=== PATIENT | female | born 1945 | race Caucasian/White ===

== ENCOUNTER 2021-02-25 14:40 | Inpatient (IN) ==
[2021-02-25] MEDS ORDERED: methylPREDNISolone SOD SUC 125 MG/2 ML VIAL IV STA (16:00)
[2021-02-25] MEDS ORDERED: ALBUTEROL/IPRATROPIUM 3 ML NEB RESP TX STA (16:00)
[2021-02-25 16:28] LABS: Basophils % 0.2 % (0.0-0.8); Hematocrit 43.6 VOL% (35.7-47.0); Hemoglobin 13.8 GM/DL (12.0-16.0); Immature Granulocytes % 0.3 %; Immature Granulocytes Absolute 0.03 #; Lymphocytes # 2.4 10*3/uL (1.4-4.0); Lymphocytes % 26.8 % (21.3-54.2); Mean Corpuscular HGB Conc 31.7 GM/DL (32-36); Mean Corpuscular Volume 93.4 FL (87-102); Mean Platelet Volume 11.8 FL (9.6-12.0); Neutrophils % 65.7 % (38.7-73.9); Platelet Count 199 T/CUMM (130-400); Red Blood Count 4.67 MC/CUMM (3.8-5.5); Red Cell Distribution Width 13.9 % (9.3-17.3); White Blood Count 9.1 T/CUMM (4-12)
[2021-02-25 16:54] LABS: Albumin 3.8 G/DL (3.4-5.0); Bilirubin,Total 0.4 MG/DL (0.20-1.00); Calcium 9.5 MG/DL (8.5-10.1); Osmolality,Calculated 284.1 MOS/KG (273-304); Potassium 4.5 MMOL/L (3.5-5.1); Total Protein 8.6 G/DL (6.4-8.2)
[2021-02-25] MEDS ORDERED: LEVOFLOXACIN INJ 500 MG/100 ML PREMIX IV STA (17:20)
[2021-02-25] MEDS ORDERED: ACETAMINOPHEN 325 MG TABLET PO PRN (18:36)
[2021-02-25] MEDS ORDERED: ONDANSETRON 4 MG/2 ML VIAL IV PRN (18:36)
[2021-02-25] MEDS: ALBUTEROL/IPRATROPIUM 3 ML NEB RESP TX SCH ×2 (19:20→23:50)
[2021-02-25] MEDS ORDERED: cloNIDine 0.1 MG TABLET PO PRN (20:18)
[2021-02-25] MEDS: SERTRALINE 25 MG TABLET PO SCH (22:28)
[2021-02-25] MEDS: METOPROLOL TARTRATE 25 MG TABLET PO SCH (22:28)
[2021-02-25] MEDS: CLOPIDOGREL 75 MG TABLET PO SCH (22:28)
[2021-02-25] MEDS: ATORVASTATIN 40 MG TABLET PO SCH (22:28)
[2021-02-26] MEDS: methylPREDNISolone SOD SUC 40 MG/1 ML VIAL IV SCH ×3 (00:59→15:29)
[2021-02-26] MEDS: ALBUTEROL/IPRATROPIUM 3 ML NEB RESP TX SCH ×3 (03:31→11:30)
[2021-02-26 05:28] LABS: Basophils % 0.2 % (0.0-0.8); Hematocrit 40.2 VOL% (35.7-47.0); Hemoglobin 12.7 GM/DL (12.0-16.0); Immature Granulocytes % 0.5 %; Immature Granulocytes Absolute 0.03 #; Lymphocytes # 0.9 10*3/uL (1.4-4.0); Lymphocytes % 14.5 % (21.3-54.2); Mean Corpuscular HGB Conc 31.6 GM/DL (32-36); Mean Corpuscular Volume 92.6 FL (87-102); Mean Platelet Volume 12.2 FL (9.6-12.0); Monocytes % 1.2 % (1.7-12.7); Neutrophils % 83.6 % (38.7-73.9); Platelet Count 172 T/CUMM (130-400); Red Blood Count 4.34 MC/CUMM (3.8-5.5); Red Cell Distribution Width 13.9 % (9.3-17.3)
[2021-02-26 05:57] LABS: Albumin 3.3 G/DL (3.4-5.0); Calcium 9.1 MG/DL (8.5-10.1); Osmolality,Calculated 285.4 MOS/KG (273-304); Potassium 4.6 MMOL/L (3.5-5.1); Total Protein 7.9 G/DL (6.4-8.2)
[2021-02-26] MEDS: GABAPENTIN 300 MG CAPSULE PO SCH ×3 (09:22→17:03)
[2021-02-26] MEDS: METOPROLOL TARTRATE 25 MG TABLET PO SCH ×2 (09:23→21:43)
[2021-02-26] MEDS: LEVOFLOXACIN INJ 250 MG/50 ML PREMIX IV SCH (17:03)
[2021-02-26] MEDS: CLOPIDOGREL 75 MG TABLET PO SCH (21:43)
[2021-02-26] MEDS: ATORVASTATIN 40 MG TABLET PO SCH (21:43)
[2021-02-26] MEDS: SERTRALINE 25 MG TABLET PO SCH (21:47)
[2021-02-27] MEDS: methylPREDNISolone SOD SUC 40 MG/1 ML VIAL IV SCH ×3 (00:13→16:22)
[2021-02-27] MEDS: GABAPENTIN 300 MG CAPSULE PO SCH ×3 (08:54→16:22)
[2021-02-27] MEDS: METOPROLOL TARTRATE 25 MG TABLET PO SCH ×2 (08:55→21:18)
[2021-02-27] MEDS: ALBUTEROL/IPRATROPIUM 3 ML NEB RESP TX SCH ×4 (11:57→23:43)
[2021-02-27] MEDS: LEVOFLOXACIN INJ 250 MG/50 ML PREMIX IV SCH (16:40)
[2021-02-27] MEDS: ATORVASTATIN 40 MG TABLET PO SCH (21:17)
[2021-02-27] MEDS: CLOPIDOGREL 75 MG TABLET PO SCH (21:18)
[2021-02-27] MEDS: SERTRALINE 25 MG TABLET PO SCH (21:18)
[2021-02-28] MEDS: methylPREDNISolone SOD SUC 40 MG/1 ML VIAL IV SCH ×3 (00:02→16:51)
[2021-02-28] MEDS: ALBUTEROL/IPRATROPIUM 3 ML NEB RESP TX SCH ×6 (02:48→19:51)
[2021-02-28] MEDS: METOPROLOL TARTRATE 25 MG TABLET PO SCH ×2 (09:10→21:45)
[2021-02-28] MEDS: GABAPENTIN 300 MG CAPSULE PO SCH ×3 (09:10→16:51)
[2021-02-28] MEDS: LEVOFLOXACIN INJ 250 MG/50 ML PREMIX IV SCH (16:51)
[2021-02-28] MEDS: CLOPIDOGREL 75 MG TABLET PO SCH (21:44)
[2021-02-28] MEDS: SERTRALINE 25 MG TABLET PO SCH (21:44)
[2021-02-28] MEDS: ATORVASTATIN 40 MG TABLET PO SCH (21:44)
[2021-03-01] MEDS: methylPREDNISolone SOD SUC 40 MG/1 ML VIAL IV SCH (00:19)
[2021-03-01] MEDS: ALBUTEROL/IPRATROPIUM 3 ML NEB RESP TX SCH ×5 (07:39→23:52)
[2021-03-01] MEDS: GABAPENTIN 300 MG CAPSULE PO SCH ×3 (08:38→17:15)
[2021-03-01] MEDS: predniSONE 10 MG TABLET PO SCH (08:38)
[2021-03-01] MEDS: METOPROLOL TARTRATE 25 MG TABLET PO SCH ×3 (08:38→22:43)
[2021-03-01] MEDS: LEVOFLOXACIN INJ 250 MG/50 ML PREMIX IV SCH (17:15)
[2021-03-01] MEDS: ATORVASTATIN 40 MG TABLET PO SCH (21:09)
[2021-03-01] MEDS: CLOPIDOGREL 75 MG TABLET PO SCH (21:10)
[2021-03-01] MEDS: SERTRALINE 25 MG TABLET PO SCH (21:10)
[2021-03-02] MEDS: ALBUTEROL/IPRATROPIUM 3 ML NEB RESP TX SCH ×3 (03:52→07:05)
[2021-03-02 07:57] VITALS: BP 133/59
[2021-03-02] MEDS: predniSONE 10 MG TABLET PO SCH (08:49)
[2021-03-02] MEDS: GABAPENTIN 300 MG CAPSULE PO SCH ×2 (08:50→11:37)
[2021-03-02] MEDS: METOPROLOL TARTRATE 25 MG TABLET PO SCH (08:50)
== END 2021-03-02 12:31 | disposition home or self-care (01) | DRG 192 ==
LOC: N.ED 14:40 → N.EDINP 18:35 → N.3E 20:31
PROVIDERS: ADMIT Family Medicine; ATTEND Family Medicine

== ENCOUNTER 2022-05-10 18:24 | Inpatient (IN) ==
[2022-05-10] MEDS ORDERED: MORPHINE 2 MG/1 ML SYRINGE IV STA (19:41)
[2022-05-10] MEDS ORDERED: ONDANSETRON 4 MG/2 ML VIAL IV STA (19:41)
[2022-05-10 20:29] LABS: Basophils # 0.1 10*3/uL (0.0-0.2); Basophils % 0.5 % (0.0-0.8); Eosinophils # 0.2 10*3/uL (0.0-0.87); Eosinophils % 2.5 % (0.00-10.9); Hematocrit 32.9 VOL% (35.7-47.0); Hemoglobin 10.4 GM/DL (12.0-16.0); Immature Granulocytes % 0.4 %; Immature Granulocytes Absolute 0.04 #; Lymphocytes # 2.4 10*3/uL (1.4-4.0); Lymphocytes % 24.9 % (21.3-54.2); Mean Corpuscular HGB Conc 31.6 GM/DL (32-36); Mean Corpuscular Volume 94.3 FL (87-102); Monocytes # 0.3 10*3/uL (0.11-0.8); NRBC # 0.02 10*3/uL; Neutrophils % 68.7 % (38.7-73.9); Platelet Count 78 T/CUMM (130-400); Red Blood Count 3.49 MC/CUMM (3.8-5.5); Red Cell Distribution Width 16.8 % (9.3-17.3); White Blood Count 9.8 T/CUMM (4-12)
[2022-05-10 21:05] LABS: PT Patient Result 10.9 SECS (10.1-12.1); Partial Thromboplastin Time 27.2 SECS (23.7-32.9)
[2022-05-10 21:14] LABS: Albumin 2.9 G/DL (3.4-5.0); Bilirubin,Total 0.4 MG/DL (0.20-1.00); Calcium 9.3 MG/DL (8.5-10.1); Potassium 4.7 MMOL/L (3.5-5.1); Total Protein 6.6 G/DL (6.4-8.2)
[2022-05-10] MEDS ORDERED: SODIUM CHLORIDE 0.9% 500 ML IV STA (21:30)
[2022-05-10] MEDS ORDERED: MORPHINE 2 MG/1 ML SYRINGE IV PRN (22:37)
[2022-05-10] MEDS ORDERED: HYDROmorphone 1 MG/1 ML SYRINGE IV PRN (22:37)
[2022-05-10] MEDS ORDERED: ACETAMINOPHEN 325 MG TABLET PO PRN (22:37)
[2022-05-10] MEDS: SODIUM CHLORIDE 0.9% 1,000 ML IV SCH (23:53)
[2022-05-11] MEDS: ALBUTEROL/IPRATROPIUM 3 ML NEB RESP TX SCH ×6 (07:44→23:05)
[2022-05-11] MEDS ORDERED: fentaNYL 100 MCG/2 ML VIAL ONE (08:04)
[2022-05-11] MEDS ORDERED: LIDOCAINE 2% 5 ML VIAL ONE (08:04)
[2022-05-11] MEDS ORDERED: ROCURONIUM 50 MG/5 ML VIAL IV ONE (08:04)
[2022-05-11] MEDS ORDERED: propofoL 200 MG/20 ML VIAL IV ONE (08:04)
[2022-05-11] MEDS ORDERED: ONDANSETRON 4 MG/2 ML VIAL ONE ×2 (08:04→08:10)
[2022-05-11] MEDS ORDERED: SCOPOLAMINE 1.5 MG PATCH TRANSDERM ONE (08:09)
[2022-05-11] MEDS ORDERED: LIDOCAINE 1% 5 ML VIAL ONE (08:16)
[2022-05-11] MEDS ORDERED: BUPIVACAINE MPF 0.25% 30 ML VIAL ONE (08:16)
[2022-05-11] MEDS ORDERED: DEXAMETHASONE 4 MG/1 ML VIAL ONE (08:16)
[2022-05-11] MEDS ORDERED: ePHEDrine 50 MG/ML VIAL ONE (09:00)
[2022-05-11] MEDS ORDERED: PHENYLEPHRINE 10 MG/1 ML VIAL IV ONE (09:00)
[2022-05-11] MEDS ORDERED: PHENYLEPHRINE 1 MG/10 ML SYRINGE IV ONE (09:05)
[2022-05-11] MEDS ORDERED: SEVOFLURANE 1 UNIT/15 MINUTE INH ONE ×2 (09:05→09:49)
[2022-05-11] MEDS ORDERED: ceFAZolin 1,000 MG VIAL ONE (09:09)
[2022-05-11] MEDS ORDERED: SUGAMMADEX 200 MG/2 ML VIAL IV ONE (09:25)
[2022-05-11] MEDS ORDERED: MAGNESIUM HYDROXIDE SUSP 30 ML UDCUP PO PRN (09:41)
[2022-05-11] MEDS ORDERED: LACTULOSE 20 GM/30 ML UDCUP PO PRN (09:42)
[2022-05-11] MEDS ORDERED: BISACODYL 10 MG SUPP RECTAL PRN (09:42)
[2022-05-11] MEDS ORDERED: PROMETHAZINE 25 MG/1 ML VIAL IM PRN (09:42)
[2022-05-11] MEDS ORDERED: diphenhydrAMINE CAP 25 MG CAPSULE PO PRN (09:42)
[2022-05-11] MEDS ORDERED: ACETAMINOPHEN 325 MG TABLET PO PRN (09:44)
[2022-05-11] MEDS ORDERED: MORPHINE 2 MG/1 ML SYRINGE IV PRN ×3 (09:45→10:53)
[2022-05-11] MEDS ORDERED: ceFAZolin 2,000 MG/50 ML DUPLEX IV ONE (10:00)
[2022-05-11] MEDS ORDERED: MEPERIDINE 25 MG/1 ML VIAL ONE (10:07)
[2022-05-11] MEDS ORDERED: ONDANSETRON 4 MG/2 ML VIAL IV PRN (10:10)
[2022-05-11] MEDS ORDERED: MEPERIDINE 25 MG/1 ML VIAL IV PRN (10:10)
[2022-05-11] MEDS: LACTATED RINGERS 1,000 ML IV SCH (11:08)
[2022-05-11] MEDS: GABAPENTIN 300 MG CAPSULE PO SCH ×3 (11:11→17:37)
[2022-05-11] MEDS: PANTOPRAZOLE 40 MG TABLET PO SCH (11:11)
[2022-05-11] MEDS: DOCUSATE SODIUM 100 MG CAPSULE PO SCH ×2 (11:11→21:14)
[2022-05-11] MEDS: SODIUM CHLORIDE 0.9% 1,000 ML IV SCH (11:14)
[2022-05-11] MEDS: METOPROLOL TARTRATE 25 MG TABLET PO SCH ×2 (13:35→21:14)
[2022-05-11] MEDS: ONDANSETRON 4 MG/2 ML VIAL IV PRN (13:57)
[2022-05-11] MEDS: ARFORMOTEROL 15 MCG/2 ML NEB RESP TX SCH (19:19)
[2022-05-11] MEDS: FAMOTIDINE 20 MG TABLET PO SCH (21:13)
[2022-05-11] MEDS: ATORVASTATIN 40 MG TABLET PO SCH (21:14)
[2022-05-11] MEDS: SERTRALINE 25 MG TABLET PO SCH (21:18)
[2022-05-12] MEDS: ALBUTEROL/IPRATROPIUM 3 ML NEB RESP TX SCH ×6 (03:31→23:34)
[2022-05-12] MEDS: ENOXAPARIN 30 MG/0.3 ML SYRINGE SUBCUT SCH (05:17)
[2022-05-12] MEDS: LACTATED RINGERS 1,000 ML IV SCH (05:18)
[2022-05-12 05:43] LABS: Basophils % 0.4 % (0.0-0.8); Eosinophils % 0.4 % (0.00-10.9); Hematocrit 28.9 VOL% (35.7-47.0); Hemoglobin 8.6 GM/DL (12.0-16.0); Immature Granulocytes % 0.6 %; Immature Granulocytes Absolute 0.04 #; Lymphocytes # 1.7 10*3/uL (1.4-4.0); Lymphocytes % 23.8 % (21.3-54.2); Mean Corpuscular HGB Conc 29.8 GM/DL (32-36); Mean Corpuscular Volume 98.3 FL (87-102); Mean Platelet Volume 12.4 FL (9.6-12.0); Monocytes # 0.5 10*3/uL (0.11-0.8); Monocytes % 6.9 % (1.7-12.7); Neutrophils % 67.9 % (38.7-73.9); Platelet Count 107 T/CUMM (130-400); Red Blood Count 2.94 MC/CUMM (3.8-5.5); Red Cell Distribution Width 14.6 % (9.3-17.3); White Blood Count 7.3 T/CUMM (4-12)
[2022-05-12] MEDS ORDERED: FONDAPARINUX 2.5 MG/0.5 ML SYRINGE SUBCUT SCH (06:00)
[2022-05-12 06:21] LABS: Calcium 8.5 MG/DL (8.5-10.1); Osmolality,Calculated 292.6 MOS/KG (273-304); Potassium 5.4 MMOL/L (3.5-5.1)
[2022-05-12] MEDS: ARFORMOTEROL 15 MCG/2 ML NEB RESP TX SCH ×2 (07:05→19:40)
[2022-05-12] MEDS: PANTOPRAZOLE 40 MG TABLET PO SCH (08:31)
[2022-05-12] MEDS: GABAPENTIN 300 MG CAPSULE PO SCH ×3 (08:31→17:21)
[2022-05-12] MEDS: CLOPIDOGREL 75 MG TABLET PO SCH (08:32)
[2022-05-12] MEDS: METOPROLOL SUCCINATE XL 50 MG TABLET PO SCH (08:32)
[2022-05-12] MEDS: DOCUSATE SODIUM 100 MG CAPSULE PO SCH ×2 (08:32→20:41)
[2022-05-12] MEDS: FAMOTIDINE 20 MG TABLET PO SCH ×2 (09:15→20:41)
[2022-05-12] MEDS: REVEFENACIN 175 MCG/3 ML INH SCH (09:49)
[2022-05-12] MEDS: ATORVASTATIN 40 MG TABLET PO SCH (20:41)
[2022-05-12] MEDS: SERTRALINE 25 MG TABLET PO SCH (20:41)
[2022-05-13] MEDS: ALBUTEROL/IPRATROPIUM 3 ML NEB RESP TX SCH ×3 (03:16→11:38)
[2022-05-13 05:24] LABS: Basophils % 0.5 % (0.0-0.8); Eosinophils # 0.5 10*3/uL (0.0-0.87); Eosinophils % 6.7 % (0.00-10.9); Hematocrit 26.6 VOL% (35.7-47.0); Immature Granulocytes % 0.8 %; Immature Granulocytes Absolute 0.06 #; Lymphocytes # 2.1 10*3/uL (1.4-4.0); Lymphocytes % 27.4 % (21.3-54.2); Mean Corpuscular HGB Conc 30.1 GM/DL (32-36); Mean Corpuscular Volume 98.2 FL (87-102); Mean Platelet Volume 12.9 FL (9.6-12.0); Monocytes # 0.5 10*3/uL (0.11-0.8); Monocytes % 6.6 % (1.7-12.7); Platelet Count 112 T/CUMM (130-400); Red Blood Count 2.71 MC/CUMM (3.8-5.5); Red Cell Distribution Width 15.3 % (9.3-17.3); White Blood Count 7.8 T/CUMM (4-12)
[2022-05-13 05:36] LABS: Calcium 8.5 MG/DL (8.5-10.1); Osmolality,Calculated 288.8 MOS/KG (273-304); Potassium 4.4 MMOL/L (3.5-5.1)
[2022-05-13] MEDS: ENOXAPARIN 30 MG/0.3 ML SYRINGE SUBCUT SCH (05:52)
[2022-05-13 07:07] VITALS: BP 100/54
[2022-05-13] MEDS: ARFORMOTEROL 15 MCG/2 ML NEB RESP TX SCH (07:19)
[2022-05-13] MEDS: FAMOTIDINE 20 MG TABLET PO SCH (08:39)
[2022-05-13] MEDS: GABAPENTIN 300 MG CAPSULE PO SCH (08:39)
[2022-05-13] MEDS: CLOPIDOGREL 75 MG TABLET PO SCH (08:39)
[2022-05-13] MEDS: PANTOPRAZOLE 40 MG TABLET PO SCH (08:39)
[2022-05-13] MEDS: METOPROLOL SUCCINATE XL 50 MG TABLET PO SCH (08:40)
[2022-05-13] MEDS: DOCUSATE SODIUM 100 MG CAPSULE PO SCH (08:40)
[2022-05-13] MEDS: ONDANSETRON 4 MG/2 ML VIAL IV PRN (08:43)
[2022-05-13] MEDS: LACTATED RINGERS 1,000 ML IV SCH (11:24)
[2022-05-13] MEDS: REVEFENACIN 175 MCG/3 ML INH SCH (11:24)
== END 2022-05-13 11:47 | disposition swing bed (61) | DRG 482 ==
LOC: N.ED 18:24 → N.EDINP 21:27 → N.3E 05-11 07:40
PROVIDERS: ADMIT Family Medicine; ATTEND Family Medicine

== ENCOUNTER 2022-05-13 22:12 | Inpatient (IN) ==
[2022-05-13] MEDS ORDERED: NOREPINEPHRINE DRIP 8 MG/250 ML PREMIX IV ONE (23:43)
[2022-05-13] MEDS ORDERED: MIDAZOLAM DRIP 100 MG/100 ML PREMIX IV ONE (23:44)
[2022-05-13] MEDS ORDERED: MIDAZOLAM DRIP 100 MG/100 ML PREMIX IV PRN (23:48)
[2022-05-13] MEDS ORDERED: NOREPINEPHRINE DRIP 8 MG/250 ML PREMIX IV PRN (23:48)
[2022-05-13] MEDS ORDERED: ALBUTEROL 2.5 MG/3 ML NEB RESP TX PRN (23:49)
[2022-05-13] MEDS ORDERED: ACETAMINOPHEN 325 MG TABLET PO PRN (23:50)
[2022-05-13] MEDS ORDERED: hydrALAZINE 20 MG/1 ML VIAL IV PRN (23:50)
[2022-05-13] MEDS ORDERED: ONDANSETRON 4 MG/2 ML VIAL IV PRN (23:50)
[2022-05-14] MEDS: ALBUTEROL/IPRATROPIUM 3 ML NEB RESP TX SCH ×4 (00:30→19:49)
[2022-05-14 00:40] LABS: Alanine Aminotransferase < 6 U/L (13-56); Albumin 2.5 G/DL (3.4-5.0); Alkaline Phosphatase 69 U/L (45-117); Aspartate Amino Transferase 10 U/L (0-37); Blood Urea Nitrogen 20 MG/DL (7-18); Calcium 8.3 MG/DL (8.5-10.1); Carbon Dioxide 26 MMOL/L (21-32); Chloride 110 MMOL/L (98-107); Glucose 205 MG/DL (74-106); Osmolality,Calculated 294.8 MOS/KG (273-304); Potassium 4.7 MMOL/L (3.5-5.1); Sodium 144 MMOL/L (136-145); Total Protein 6.4 G/DL (6.4-8.2)
[2022-05-14 00:55] LABS: Basophils # 0.1 10*3/uL (0.0-0.2); Basophils % 0.5 % (0.0-0.8); Eosinophils # 0.1 10*3/uL (0.0-0.87); Eosinophils % 0.8 % (0.00-10.9); Hematocrit 29.8 VOL% (35.7-47.0); Hemoglobin 9.2 GM/DL (12.0-16.0); Immature Granulocytes % 0.9 %; Immature Granulocytes Absolute 0.14 #; Lymphocytes # 0.7 10*3/uL (1.4-4.0); Lymphocytes % 4.3 % (21.3-54.2); Mean Corpuscular HGB Conc 30.9 GM/DL (32-36); Mean Corpuscular Volume 98.7 FL (87-102); Monocytes # 0.3 10*3/uL (0.11-0.8); Monocytes % 1.9 % (1.7-12.7); Neutrophils % 91.6 % (38.7-73.9); Platelet Count 170 T/CUMM (130-400); Red Blood Count 3.02 MC/CUMM (3.8-5.5); Red Cell Distribution Width 14.9 % (9.3-17.3); White Blood Count 16.1 T/CUMM (4-12)
[2022-05-14 01:01] LABS: ABG Base Excess 0.8 MMOL/L (-2.5-2.5); ABG Oxygen Saturation 87.2 % (95-100); ABG PCO2 59.5 MM HG (35-48); ABG PH 7.287 (7.35-7.45); ABG PO2 55.4 MM HG (80-95); ABG TCO2 26.5 MMOL/L (23-27)
[2022-05-14 01:15] LABS: Band Neutrophils 1 % (0-10); Eosinophils 2 % (0-10); Hypochromia Slight; Lymphocytes 2 % (20-55); Platelet Estimate Normal; Total Cells Counted 100
[2022-05-14 01:18] LABS: Bacteria,Urine Occasional /HPF (Few); Bilirubin,Urine Negative (Negative); Blood, Urine Trace mg/dL (Negative); Glucose,Urine (UA) Negative (Negative); Ketones,Urine Negative (Negative); Mucus,Urine Occasional /LPF (Occasional); Nitrite,Urine Negative (Negative); Protein,Urine Negative (Negative); RBC,Urine 2 /HPF (0-4); Squamous Epithelial Cell,Urine Occasional /HPF (0-10); Urine Appearance Clear (Clear); Urine Color Yellow (Yellow); Urine Specific Gravity 1.015 (1.001-1.035); Urine Urobilinogen 0.2 eU/dL (<2.0)
[2022-05-14 01:28] LABS: ABG Base Excess 0.9 MMOL/L (-2.5-2.5); ABG HCO3 25.2 MMOL/L (20-26); ABG PCO2 53.8 MM HG (35-48); ABG PH 7.319 (7.35-7.45); ABG TCO2 25.6 MMOL/L (23-27)
[2022-05-14] MEDS ORDERED: GABAPENTIN 300 MG CAPSULE PO SCH (08:00)
[2022-05-14] MEDS: ENOXAPARIN 30 MG/0.3 ML SYRINGE SUBCUT SCH (08:39)
[2022-05-14] MEDS ORDERED: METOPROLOL SUCCINATE XL 50 MG TABLET PO SCH (09:00)
[2022-05-14] MEDS ORDERED: FAMOTIDINE 20 MG TABLET PO SCH (09:00)
[2022-05-14] MEDS ORDERED: CLOPIDOGREL 75 MG TABLET PO SCH (09:00)
[2022-05-14] MEDS ORDERED: ATORVASTATIN 40 MG TABLET PO SCH (09:00)
[2022-05-14] MEDS ORDERED: ACETAMINOPHEN 325 MG TABLET PER TUBE PRN (09:17)
[2022-05-14] MEDS: cefTRIAXone 1,000 MG in SODIUM CHLORIDE 0.9% 100 ML IV SCH (10:39)
[2022-05-14] MEDS: methylPREDNISolone SOD SUC 40 MG/1 ML VIAL IV SCH ×2 (10:46→20:32)
[2022-05-14] MEDS: PANTOPRAZOLE 40 MG VIAL IV SCH (10:50)
[2022-05-14] MEDS: INSULIN GLARGINE 100 UNIT/ML SUBCUT SCH (11:34)
[2022-05-14] MEDS: INSULIN LISPRO 100 UNIT/ML SUBCUT SCH ×3 (11:52→23:12)
[2022-05-14 13:28] LABS: Arterial Base Excess iSTAT 4 MMOL/L (-2.5-2.5); Arterial Bicarbonate iSTAT 29.9 MMOL/L (20-26); Arterial O2 Saturation iSTAT 94 % (95-100); Arterial PCO2 iSTAT 50 MM HG (35-48); Arterial PO2 iSTAT 71 MM HG (80-95); Arterial Total CO2 iSTAT 31 MMO/L (23-27); Arterial pH iSTAT 7.387 (7.35-7.45)
[2022-05-14] MEDS: GABAPENTIN 100 MG CAPSULE PO SCH (20:26)
[2022-05-15] MEDS: ALBUTEROL/IPRATROPIUM 3 ML NEB RESP TX SCH ×4 (00:39→19:33)
[2022-05-15 03:52] LABS: Arterial Base Excess iSTAT 5 MMOL/L (-2.5-2.5); Arterial Bicarbonate iSTAT 29.8 MMOL/L (20-26); Arterial O2 Saturation iSTAT 93 % (95-100); Arterial PCO2 iSTAT 47 MM HG (35-48); Arterial PO2 iSTAT 68 MM HG (80-95); Arterial Total CO2 iSTAT 31 MMO/L (23-27); Arterial pH iSTAT 7.412 (7.35-7.45)
[2022-05-15] MEDS: INSULIN LISPRO 100 UNIT/ML SUBCUT SCH ×4 (05:04→20:05)
[2022-05-15 05:11] LABS: Osmolality,Calculated 296.6 MOS/KG (273-304); Phosphorous 3.1 MG/DL (2.5-4.9); Potassium 4.6 MMOL/L (3.5-5.1)
[2022-05-15] MEDS: PANTOPRAZOLE 40 MG VIAL IV SCH (08:15)
[2022-05-15] MEDS: ENOXAPARIN 30 MG/0.3 ML SYRINGE SUBCUT SCH (08:18)
[2022-05-15] MEDS: GABAPENTIN 100 MG CAPSULE PO SCH ×2 (08:18→20:05)
[2022-05-15] MEDS: cefTRIAXone 1,000 MG in SODIUM CHLORIDE 0.9% 100 ML IV SCH (08:31)
[2022-05-15] MEDS: methylPREDNISolone SOD SUC 40 MG/1 ML VIAL IV SCH (08:31)
[2022-05-15] MEDS ORDERED: ATORVASTATIN 40 MG TABLET PER TUBE SCH (09:00)
[2022-05-15] MEDS ORDERED: CLOPIDOGREL 75 MG TABLET PER TUBE SCH (09:00)
[2022-05-15] MEDS: INSULIN GLARGINE 100 UNIT/ML SUBCUT SCH (10:39)
[2022-05-15] MEDS ORDERED: MAGNESIUM HYDROXIDE SUSP 30 ML UDCUP PO PRN (16:15)
[2022-05-15] MEDS ORDERED: ACETAMINOPHEN 325 MG TABLET PO PRN (16:17)
[2022-05-15] MEDS: ARFORMOTEROL 15 MCG/2 ML NEB RESP TX SCH (19:40)
[2022-05-16] MEDS: ALBUTEROL/IPRATROPIUM 3 ML NEB RESP TX SCH ×3 (00:17→12:35)
[2022-05-16 05:21] LABS: Osmolality,Calculated 298.3 MOS/KG (273-304); Potassium 3.7 MMOL/L (3.5-5.1)
[2022-05-16] MEDS: ARFORMOTEROL 15 MCG/2 ML NEB RESP TX SCH (07:10)
[2022-05-16] MEDS: INSULIN LISPRO 100 UNIT/ML SUBCUT SCH ×2 (07:29→11:53)
[2022-05-16] MEDS ORDERED: SERTRALINE 25 MG TABLET PO SCH (09:00)
[2022-05-16] MEDS ORDERED: CLOPIDOGREL 75 MG TABLET PO SCH (09:00)
[2022-05-16] MEDS ORDERED: ATORVASTATIN 40 MG TABLET PO SCH (09:00)
[2022-05-16] MEDS ORDERED: REVEFENACIN 175 MCG/3 ML INH SCH (09:00)
[2022-05-16] MEDS: cefTRIAXone 1,000 MG in SODIUM CHLORIDE 0.9% 100 ML IV SCH (09:40)
[2022-05-16] MEDS: ENOXAPARIN 30 MG/0.3 ML SYRINGE SUBCUT SCH (09:41)
[2022-05-16] MEDS: GABAPENTIN 100 MG CAPSULE PO SCH (09:41)
== END 2022-05-16 15:00 | disposition swing bed (61) | DRG 208 ==
LOC: N.CC 22:27 → SUATTDRO 22:27
PROVIDERS: ADMIT Internal Medicine; ATTEND Family Medicine